=== PATIENT | female | born 1940 | race Caucasian/White ===

== ENCOUNTER 2020-10-07 13:33 | Inpatient (IN) | payer MEDICARE ==
[~2020-10-07] VITALS: Ht 157.5 cm; Wt 107.6 kg
[2020-10-07 14:33] LABS: BASOPHIL 1.6 % (0-2); EOSINOPHIL 0.9 % (0-7); HGB 14.3 g/dl (12.5-16.0); LYMPHOCYTE 12.3 % (15-48); MCH 34.9 pg (25.0-31.0); MCHC 33.3 g/dL (32.0-36.0); MCV 104.9 fL (78.0-100.0); MONOCYTE 9.3 % (0-12); NEUTROPHIL 75.5 % (41-80); NRBC 0; PLT 208 K/uL (150-400); WBC 5.7 K/uL (4.0-10.5)
[2020-10-07 14:40] LABS: ALBUMIN 3.9 g/dL (3.4-5.0); BILIRUBIN - TOTAL 1.5 mg/dL (0.2-1.0); BUN/CREAT RATIO (CALC) 24.7 RATIO; CREATININE 0.73 mg/dL (0.51-0.95); GLOBULIN (CALCULATION) 3.9 g/dL; POTASSIUM 4.5 mmol/L (3.5-5.1); TOTAL PROTEIN 7.8 g/dL (6.4-8.2)
[2020-10-07 16:50] LABS: CORONAVIRUS 2019 SARS-COV-2 NEGATIVE (NEGATIVE); INFLUENZA A NAA NEGATIVE (NEGATIVE)
--- NOTE | 2020-10-07 18:22 | NUR ---
PATIENT ARRIVED FROM ER VIA STRETCHER. ON EXAM PATIENT WAS NOTED TO HAVE VERY YEASTY AND EXCORIATED ABDOMINAL FOLDS. CELLULITIS NOTED ON BLE. RIGHT ARM IS SWOLLEN. NEW ORDERS ENTERED PER DR. DUMONT FOR [facility].
[2020-10-08 05:51] LABS: HCT 37.1 % (37.0-47.0); HGB 12.8 g/dl (12.5-16.0); MCH 35.2 pg (25.0-31.0); MCHC 34.5 g/dL (32.0-36.0); MCV 101.9 fL (78.0-100.0); RBC 3.64 M/uL (4.20-5.40); RDW 16.8 % (11.5-14.0); WBC 4.5 K/uL (4.0-10.5)
[2020-10-08 06:16] LABS: BUN/CREAT RATIO (CALC) 21.6 RATIO; CREATININE 0.74 mg/dL (0.51-0.95)
--- NOTE | 2020-10-08 16:09 | NUR ---
10/08/20 Patient was transferred to [facility].
== END 2020-10-08 10:33 | disposition other institution (70) | DRG 281 ==
LOC: FER 13:33 → FMS 16:11
PROVIDERS: Nurse Practitioner Family; ADMIT Hospitalist
DX: I50.9 Heart failure, unspecified (principal); I21.A1 Myocardial infarction type 2; Z68.41 Body mass index [BMI] 40.0-44.9, adult; L03.116 Cellulitis of left lower limb; L03.115 Cellulitis of right lower limb; J98.11 Atelectasis; Z20.822 Contact with and (suspected) exposure to COVID-19; E66.9 Obesity, unspecified; Z77.22 Contact with and (suspected) exposure to environmental tobacco smoke (acute) (chronic); Z88.8 Allergy status to other drugs, medicaments and biological substances; Z88.6 Allergy status to analgesic agent; Z85.3 Personal history of malignant neoplasm of breast; Z90.11 Acquired absence of right breast and nipple; Z90.49 Acquired absence of other specified parts of digestive tract; Z98.890 Other specified postprocedural states
CPT/HCPCS: 36415; 71045; 80048; 80053; 80061; 83036; 83880; 84484; 85025; 93005; 96374; J1650; J1940; U0002